=== PATIENT | female | born 1985 | race Two or more races ===

== ENCOUNTER 2020-09-11 19:29 | Emergency (ER) | payer BC, OTHER ==
[~2020-09-11] VITALS: Ht 162.6 cm; Wt 105.7 kg
[2020-09-11 21:17] VITALS: BP 146/85
== END 2020-09-12 00:23 | disposition home or self-care (01) ==
LOC: ER 19:29
DX: M54.2 Cervicalgia (principal); M25.562 Pain in left knee; M25.552 Pain in left hip; R07.89 Other chest pain; V49.49XA Driver injured in collision with other motor vehicles in traffic accident, initial encounter; Y93.89 Activity, other specified; Y99.8 Other external cause status; Y92.410 Unspecified street and highway as the place of occurrence of the external cause
CPT/HCPCS: 70450; 71045; 72125; 73501; 73562